=== PATIENT | male | born 1955 | race Caucasian/White ===

== ENCOUNTER 2017-10-29 23:07 | Inpatient (IN) ==
[2017-10-30] MEDS ORDERED: methylPREDNISolone SOD SUC 125 MG/2 ML VIAL IV STA (00:06)
[2017-10-30] MEDS ORDERED: ALBUTEROL/IPRATROPIUM 3 ML NEB RESP TX STA (00:06)
[2017-10-30 00:16] LABS: Immature Granulocytes Absolute 0.03 #; Mean Corpuscular Hemoglobin 30 PG (27-34); Red Cell Distribution Width 14.5 % (9.3-17.3)
[2017-10-30] MEDS ORDERED: methylPREDNISolone SOD SUC 125 MG/2 ML VIAL ONE (00:29)
[2017-10-30 00:32] LABS: Alanine Aminotransferase 21 U/L (16-61); Albumin 3.1 G/DL (3.4-5.0); Alkaline Phosphatase 96 U/L (45-117); Aspartate Amino Transferase 24 U/L (0-37); Bilirubin,Total < 0.39 MG/DL (0.2-1.0); Blood Urea Nitrogen 14 MG/DL (7-18); Calcium 8.5 MG/DL (8.5-10.1); Glucose 158 MG/DL (74-106); Potassium 3.8 MMOL/L (3.5-5.1); Sodium 136 MMOL/L (136-145); Total Protein 6.9 G/DL (6.4-8.3); Troponin I Only 0.042 NG/ML (0.00-0.045)
[2017-10-30 00:32] LABS: Basophils % 0.4 % (0.0-0.8); Eosinophils # 0.1 10*3/uL (0.0-0.87); Eosinophils % 1.4 % (0.00-10.9); Hematocrit 41.2 VOL% (42.0-52.0); Hemoglobin 13.6 GM/DL (14.0-18.0); Immature Granulocytes % 0.4 %; Lymphocytes # 1.2 10*3/uL (1.4-4.0); Mean Corpuscular Volume 89.4 FL (87-102); Mean Platelet Volume 11.1 FL (9.6-12.0); Monocytes # 0.6 10*3/uL (0.11-0.8); Monocytes % 8.1 % (1.7-12.7); Neutrophils # 5.3 10*3/uL (1.4-7.4); Neutrophils % 73.7 % (38.7-73.9); Platelet Count 148 T/CUMM (130-400); Red Blood Count 4.61 MC/CUMM (3.8-5.5); White Blood Count 7.2 T/CUMM (4-12)
[2017-10-30 00:40] LABS: PT Patient Result 10.3 SECS; Partial Thromboplastin Time 29.4 SECS (0-40)
[2017-10-30] MEDS ORDERED: FUROSEMIDE 40 MG/4 ML VIAL IV ONE (02:30)
[2017-10-30] MEDS ORDERED: FUROSEMIDE 20 MG/2 ML VIAL ONE (02:36)
[2017-10-30] MEDS ORDERED: FUROSEMIDE 40 MG/4 ML VIAL ONE (02:36)
[2017-10-30] MEDS ORDERED: traZODone 50 MG TABLET PO PRN (04:12)
[2017-10-30] MEDS ORDERED: NICOTINE 21 MG/24 HR PATCH TRANSDERM PRN (04:12)
[2017-10-30] MEDS ORDERED: MORPHINE 2 MG/1 ML SYRINGE IV PRN (04:12)
[2017-10-30] MEDS ORDERED: ACETAMINOPHEN 325 MG TABLET PO PRN (04:12)
[2017-10-30] MEDS ORDERED: ONDANSETRON 4 MG/2 ML VIAL IV PRN (04:12)
[2017-10-30] MEDS: LEVOFLOXACIN INJ 750 MG in PREMIX 1 EACH IV SCH (05:04)
[2017-10-30] MEDS: ALBUTEROL/IPRATROPIUM 3 ML NEB RESP TX SCH ×4 (05:29→19:42)
[2017-10-30] MEDS: LEVOTHYROXINE 25 MCG TABLET PO SCH (06:19)
[2017-10-30] MEDS: PANTOPRAZOLE 40 MG TABLET PO SCH (08:24)
[2017-10-30] MEDS: FUROSEMIDE 40 MG/4 ML VIAL IV SCH ×2 (08:24→15:05)
[2017-10-30] MEDS: ASPIRIN 325 MG TABLET PO SCH (08:24)
[2017-10-30] MEDS: LISINOPRIL 20 MG TABLET PO SCH (08:24)
[2017-10-30] MEDS: ENOXAPARIN 40 MG/0.4 ML SYRINGE SUBCUT SCH (08:35)
[2017-10-30] MEDS: CARVEDILOL 6.25 MG TABLET PO SCH ×2 (08:35→21:52)
[2017-10-30] MEDS: DOCUSATE SODIUM 100 MG CAPSULE PO SCH ×2 (08:35→21:53)
[2017-10-30] MEDS ORDERED: ALBUTEROL 2.5 MG/3 ML NEB RESP TX PRN (13:46)
[2017-10-30] MEDS ORDERED: NITROGLYCERIN SL 0.4 MG TABLET SL PRN (13:47)
[2017-10-30] MEDS: OSELTAMIVIR 75 MG CAPSULE PO SCH (15:05)
[2017-10-30] MEDS: methylPREDNISolone SOD SUC 40 MG/1 ML VIAL IV SCH (15:05)
[2017-10-30] MEDS: SPIRONOLACTONE 25 MG TABLET PO SCH (21:52)
[2017-10-30] MEDS: ATORVASTATIN 40 MG TABLET PO SCH (21:52)
[2017-10-31] MEDS: ALBUTEROL/IPRATROPIUM 3 ML NEB RESP TX SCH ×4 (01:20→19:21)
[2017-10-31 04:41] LABS: Basophils % 0.2 % (0.0-0.8); Hematocrit 45.6 VOL% (42.0-52.0); Hemoglobin 14.7 GM/DL (14.0-18.0); Immature Granulocytes % 0.8 %; Immature Granulocytes Absolute 0.08 #; Lymphocytes # 1.4 10*3/uL (1.4-4.0); Lymphocytes % 13.6 % (21.2-54.2); Mean Corpuscular HGB Conc 32.2 GM/DL (32-36); Mean Corpuscular Hemoglobin 29 PG (27-34); Mean Corpuscular Volume 89.8 FL (87-102); Mean Platelet Volume 11.8 FL (9.6-12.0); Monocytes # 0.9 10*3/uL (0.11-0.8); Monocytes % 9.3 % (1.7-12.7); Neutrophils # 7.6 10*3/uL (1.4-7.4); Neutrophils % 76.1 % (38.7-73.9); Platelet Count 188 T/CUMM (130-400); Red Blood Count 5.08 MC/CUMM (3.8-5.5); Red Cell Distribution Width 14.3 % (9.3-17.3)
[2017-10-31 05:31] LABS: Calcium 8.5 MG/DL (8.5-10.1); Magnesium 2.3 MG/DL (1.8-2.4); Osmolality,Calculated 287.4 MOS/KG (273-304)
[2017-10-31 05:40] LABS: Risk Ratio 3.9; Thyroid Stimulating Hormone 0.646 uIU/ml (0.358-3.74); VLDL CHOLESTEROL 37.8 MG/DL
[2017-10-31] MEDS: methylPREDNISolone SOD SUC 40 MG/1 ML VIAL IV SCH ×2 (06:19→21:40)
[2017-10-31] MEDS: LEVOTHYROXINE 25 MCG TABLET PO SCH (06:19)
[2017-10-31 06:26] LABS: Hypochromasia 1+; Lymphocytes 9 % (20-55); Platelet Estimate Adequate; Segmented Neutrophils 81 % (50-85); Total Cells Counted 100
[2017-10-31] MEDS: FUROSEMIDE 40 MG/4 ML VIAL IV SCH ×2 (08:35→15:03)
[2017-10-31] MEDS: ENOXAPARIN 40 MG/0.4 ML SYRINGE SUBCUT SCH (08:36)
[2017-10-31] MEDS: OSELTAMIVIR 75 MG CAPSULE PO SCH ×2 (08:36→21:41)
[2017-10-31] MEDS: LEVOFLOXACIN INJ 750 MG in PREMIX 1 EACH IV SCH (08:36)
[2017-10-31] MEDS: ASPIRIN 325 MG TABLET PO SCH (08:36)
[2017-10-31] MEDS: SPIRONOLACTONE 25 MG TABLET PO SCH ×2 (08:37→21:41)
[2017-10-31] MEDS: PANTOPRAZOLE 40 MG TABLET PO SCH (08:37)
[2017-10-31] MEDS: LISINOPRIL 20 MG TABLET PO SCH (08:37)
[2017-10-31] MEDS: DOCUSATE SODIUM 100 MG CAPSULE PO SCH ×2 (08:37→21:41)
[2017-10-31] MEDS: CARVEDILOL 6.25 MG TABLET PO SCH ×2 (08:37→21:41)
[2017-10-31] MEDS: tiZANidine 4 MG TABLET PO SCH (08:37)
[2017-10-31] MEDS: ATORVASTATIN 40 MG TABLET PO SCH (21:41)
[2017-11-01] MEDS: ALBUTEROL/IPRATROPIUM 3 ML NEB RESP TX SCH ×4 (01:45→19:29)
[2017-11-01 04:46] LABS: Basophils % 0.1 % (0.0-0.8); Hemoglobin 13.9 GM/DL (14.0-18.0); Immature Granulocytes % 0.8 %; Immature Granulocytes Absolute 0.07 #; Lymphocytes # 1.6 10*3/uL (1.4-4.0); Lymphocytes % 18.1 % (21.2-54.2); Mean Corpuscular HGB Conc 32.3 GM/DL (32-36); Mean Corpuscular Hemoglobin 29 PG (27-34); Mean Corpuscular Volume 90.1 FL (87-102); Mean Platelet Volume 12.1 FL (9.6-12.0); Monocytes # 0.5 10*3/uL (0.11-0.8); Neutrophils # 6.8 10*3/uL (1.4-7.4); Platelet Count 201 T/CUMM (130-400); Red Blood Count 4.77 MC/CUMM (3.8-5.5); Red Cell Distribution Width 14.3 % (9.3-17.3)
[2017-11-01 05:46] LABS: Calcium 8.5 MG/DL (8.5-10.1); Osmolality,Calculated 287.5 MOS/KG (273-304); Potassium 4.1 MMOL/L (3.5-5.1)
[2017-11-01] MEDS: LEVOTHYROXINE 25 MCG TABLET PO SCH (06:28)
[2017-11-01] MEDS: PANTOPRAZOLE 40 MG TABLET PO SCH (10:04)
[2017-11-01] MEDS: DOCUSATE SODIUM 100 MG CAPSULE PO SCH ×2 (10:04→20:55)
[2017-11-01] MEDS: ASPIRIN 325 MG TABLET PO SCH (10:04)
[2017-11-01] MEDS: CARVEDILOL 6.25 MG TABLET PO SCH ×2 (10:04→20:55)
[2017-11-01] MEDS: LISINOPRIL 20 MG TABLET PO SCH (10:05)
[2017-11-01] MEDS: OSELTAMIVIR 75 MG CAPSULE PO SCH ×2 (10:05→20:55)
[2017-11-01] MEDS: SPIRONOLACTONE 25 MG TABLET PO SCH ×2 (10:06→20:55)
[2017-11-01] MEDS: tiZANidine 4 MG TABLET PO SCH (10:06)
[2017-11-01] MEDS: FUROSEMIDE 40 MG/4 ML VIAL IV SCH (10:09)
[2017-11-01] MEDS: methylPREDNISolone SOD SUC 40 MG/1 ML VIAL IV SCH ×2 (10:16→21:25)
[2017-11-01] MEDS: ENOXAPARIN 40 MG/0.4 ML SYRINGE SUBCUT SCH (10:19)
[2017-11-01] MEDS: LEVOFLOXACIN INJ 750 MG in PREMIX 1 EACH IV SCH (10:20)
[2017-11-01] MEDS: ATORVASTATIN 40 MG TABLET PO SCH (20:54)
[2017-11-02] MEDS: ALBUTEROL/IPRATROPIUM 3 ML NEB RESP TX SCH ×2 (00:30→08:28)
[2017-11-02] MEDS: LEVOTHYROXINE 25 MCG TABLET PO SCH (07:15)
[2017-11-02 08:09] VITALS: BP 160/76
[2017-11-02] MEDS ORDERED: FUROSEMIDE 40 MG TABLET PO SCH (09:00)
[2017-11-02] MEDS: tiZANidine 4 MG TABLET PO SCH (09:08)
[2017-11-02] MEDS: DOCUSATE SODIUM 100 MG CAPSULE PO SCH (09:08)
[2017-11-02] MEDS: LISINOPRIL 20 MG TABLET PO SCH (09:08)
[2017-11-02] MEDS: OSELTAMIVIR 75 MG CAPSULE PO SCH (09:08)
[2017-11-02] MEDS: ASPIRIN 325 MG TABLET PO SCH (09:08)
[2017-11-02] MEDS: PANTOPRAZOLE 40 MG TABLET PO SCH (09:08)
[2017-11-02] MEDS: SPIRONOLACTONE 25 MG TABLET PO SCH (09:09)
[2017-11-02] MEDS: CARVEDILOL 6.25 MG TABLET PO SCH (09:09)
[2017-11-02] MEDS: ENOXAPARIN 40 MG/0.4 ML SYRINGE SUBCUT SCH (09:09)
[2017-11-02] MEDS: methylPREDNISolone SOD SUC 40 MG/1 ML VIAL IV SCH (09:09)
[2017-11-02] MEDS: LEVOFLOXACIN INJ 750 MG in PREMIX 1 EACH IV SCH (09:18)
== END 2017-11-02 11:00 | disposition home health service (06) | DRG 193 ==
LOC: N.ED 23:07 → SUATTDRO 10-30 02:21 → N.EDINP 10-30 02:21 → N.2E 10-30 03:41
PROVIDERS: ADMIT Internal Medicine; ATTEND Internal Medicine

== ENCOUNTER 2018-01-16 06:36 | Inpatient (IN) ==
[2018-01-16] MEDS ORDERED: FAMOTIDINE 20 MG/2 ML VIAL IV STA (06:41)
[2018-01-16] MEDS ORDERED: methylPREDNISolone SOD SUC 125 MG/2 ML VIAL IV STA ×2 (06:41→06:55)
[2018-01-16] MEDS ORDERED: methylPREDNISolone SOD SUC 125 MG/2 ML VIAL ONE (06:42)
[2018-01-16] MEDS ORDERED: FAMOTIDINE 20 MG/2 ML VIAL IV ONE (06:42)
[2018-01-16] MEDS ORDERED: diphenhydrAMINE 50 MG/1 ML VIAL ONE (06:42)
[2018-01-16] MEDS ORDERED: diphenhydrAMINE 50 MG/1 ML VIAL IV STA (06:43)
[2018-01-16] MEDS ORDERED: PROPOFOL 0 MG/0 ML BOTTLE IV ONE (06:48)
[2018-01-16] MEDS ORDERED: PROPOFOL 1,000 MG/100 ML BOTTLE IV ONE (06:56)
[2018-01-16] MEDS ORDERED: PROPOFOL 200 MG/20 ML VIAL IV STA (06:57)
[2018-01-16] MEDS ORDERED: ROCURONIUM 100 MG/10 ML VIAL IV ONE ×2 (06:57→06:58)
[2018-01-16 07:01] LABS: Basophils % 0.3 % (0.0-0.8); Eosinophils # 0.2 10*3/uL (0.0-0.87); Eosinophils % 1.9 % (0.00-10.9); Hemoglobin 14.3 GM/DL (14.0-18.0); Immature Granulocytes % 0.4 %; Immature Granulocytes Absolute 0.05 #; Lymphocytes # 1.8 10*3/uL (1.4-4.0); Lymphocytes % 14.8 % (21.2-54.2); Mean Corpuscular HGB Conc 31.8 GM/DL (32-36); Mean Corpuscular Hemoglobin 29 PG (27-34); Mean Corpuscular Volume 90.7 FL (87-102); Mean Platelet Volume 11.3 FL (9.6-12.0); Monocytes # 1.1 10*3/uL (0.11-0.8); Monocytes % 8.9 % (1.7-12.7); Neutrophils # 8.8 10*3/uL (1.4-7.4); Neutrophils % 73.7 % (38.7-73.9); Platelet Count 222 T/CUMM (130-400); Red Blood Count 4.96 MC/CUMM (3.8-5.5); Red Cell Distribution Width 15.1 % (9.3-17.3); White Blood Count 11.9 T/CUMM (4-12)
[2018-01-16] MEDS: PROPOFOL 1,000 MG/100 ML BOTTLE IV SCH ×5 (07:13→23:52)
[2018-01-16 07:22] LABS: Alanine Aminotransferase 22 U/L (16-61); Albumin 3.3 G/DL (3.4-5.0); Alkaline Phosphatase 87 U/L (45-117); Aspartate Amino Transferase 25 U/L (0-37); Bilirubin,Total < 0.39 MG/DL (0.2-1.0); Blood Urea Nitrogen 18 MG/DL (7-18); Calcium 9.1 MG/DL (8.5-10.1); Glucose 95 MG/DL (74-106); Osmolality,Calculated 284.1 MOS/KG (273-304); Potassium 4.4 MMOL/L (3.5-5.1); Sodium 142 MMOL/L (136-145); Total Protein 6.9 G/DL (6.4-8.3)
[2018-01-16 07:25] LABS: Apearance,Urine CLEAR (Clear); Bacteria,Urine Occasional /HPF (Few); Bilirubin,Urine Negative (Negative); Blood, Urine Negative (Negative); Glucose,Urine (UA) Negative (Negative); Hyaline Casts,Urine 1 /LPF (0-3); Ketones,Urine Negative (Negative); Mucus,Urine Few /LPF (Occasional); Nitrite,Urine Negative (Negative); Protein,Urine Negative; RBC,Urine 2 /HPF (0-4); Squamous Epithelial Cell,Urine Occasional /HPF (0-10); Urine Color Yellow (Yellow); Urine Specific Gravity 1.027 (1.001-1.035); Urine Urobilinogen < 2.0 EU/DL (0.2-1.0); WBC,Urine 1 /HPF (0-6)
[2018-01-16 07:47] LABS: ABG Base Excess 0.5 MMOL/L (-2.5-2.5); ABG HCO3 24.9 MMOL/L (20-26); ABG PCO2 51.4 MM HG (35-48); ABG PH 7.334 (7.35-7.45)
[2018-01-16 07:48] LABS: Allen Test Positive; Pt O2 Delivery Device Ventilator
[2018-01-16 07:49] LABS: ABG Oxygen Saturation 99.5 % (95-100)
[2018-01-16] MEDS ORDERED: ONDANSETRON 4 MG/2 ML VIAL IV PRN (07:51)
[2018-01-16] MEDS ORDERED: ALBUTEROL 2.5 MG/3 ML NEB RESP TX PRN (07:51)
[2018-01-16] MEDS ORDERED: ACETAMINOPHEN 325 MG TABLET PO PRN (07:51)
[2018-01-16] MEDS ORDERED: PANTOPRAZOLE 40 MG VIAL IV SCH (08:00)
[2018-01-16] MEDS ORDERED: SODIUM CHLORIDE 0.9% 1,000 ML IV PRN (08:35)
[2018-01-16 09:22] LABS: Troponin I Only 0.015 NG/ML (0.00-0.045)
[2018-01-16] MEDS: LEVOFLOXACIN INJ 750 MG in PREMIX 1 EACH IV SCH (09:28)
[2018-01-16] MEDS: fentaNYL INJ 1,250 MCG in SODIUM CHLORIDE 0.9% 225 ML IV SCH ×2 (09:29→18:47)
[2018-01-16] MEDS: SODIUM CHLORIDE 0.9% 1,000 ML IV SCH ×2 (09:29→18:46)
[2018-01-16] MEDS ORDERED: methylPREDNISolone SOD SUC 125 MG/2 ML VIAL IV SCH ×2 (09:30→14:00)
[2018-01-16] MEDS: amLODIPine 2.5 MG TABLET PO SCH (09:46)
[2018-01-16] MEDS ORDERED: FAMOTIDINE INJ 40 MG in SODIUM CHLORIDE 0.9% 100 ML IV SCH (10:00)
[2018-01-16] MEDS ORDERED: diphenhydrAMINE 50 MG/1 ML VIAL IV SCH (12:00)
[2018-01-16 15:52] LABS: Troponin I Only < 0.015 NG/ML (0.00-0.045)
[2018-01-16 21:23] LABS: Troponin I Only < 0.015 NG/ML (0.00-0.045)
[2018-01-17] MEDS: SODIUM CHLORIDE 0.9% 1,000 ML IV SCH ×2 (02:30→10:24)
[2018-01-17] MEDS: fentaNYL INJ 1,250 MCG in SODIUM CHLORIDE 0.9% 225 ML IV SCH ×4 (02:30→22:37)
[2018-01-17 05:16] LABS: ABG Base Excess 1.7 MMOL/L (-2.5-2.5); ABG HCO3 25.9 MMOL/L (20-26); ABG PCO2 48.5 MM HG (35-48); ABG PH 7.365 (7.35-7.45); ABG TCO2 24.7 MMOL/L (23-27); Allen Test Positive; Pt O2 Delivery Device Ventilator
[2018-01-17 05:17] LABS: ABG Oxygen Saturation 99.4 % (95-100)
[2018-01-17 06:02] LABS: Basophils % 0.1 % (0.0-0.8); Hematocrit 36.6 VOL% (42.0-52.0); Hemoglobin 11.9 GM/DL (14.0-18.0); Immature Granulocytes % 0.5 %; Immature Granulocytes Absolute 0.05 #; Lymphocytes # 1.3 10*3/uL (1.4-4.0); Lymphocytes % 13.4 % (21.2-54.2); Mean Corpuscular HGB Conc 32.5 GM/DL (32-36); Mean Corpuscular Hemoglobin 29 PG (27-34); Mean Corpuscular Volume 90.4 FL (87-102); Monocytes # 0.7 10*3/uL (0.11-0.8); Monocytes % 7.3 % (1.7-12.7); Neutrophils # 7.7 10*3/uL (1.4-7.4); Neutrophils % 78.7 % (38.7-73.9); Platelet Count 183 T/CUMM (130-400); Red Blood Count 4.05 MC/CUMM (3.8-5.5); White Blood Count 9.8 T/CUMM (4-12)
[2018-01-17 06:25] LABS: Calcium 8.3 MG/DL (8.5-10.1); Osmolality,Calculated 282.3 MOS/KG (273-304); Potassium 4.2 MMOL/L (3.5-5.1)
[2018-01-17] MEDS: PROPOFOL 1,000 MG/100 ML BOTTLE IV SCH ×4 (08:24→21:12)
[2018-01-17] MEDS: LEVOFLOXACIN INJ 750 MG in PREMIX 1 EACH IV SCH (08:26)
[2018-01-17 09:27] LABS: ABG Base Excess 1.3 MMOL/L (-2.5-2.5); ABG HCO3 25.6 MMOL/L (20-26); ABG Oxygen Saturation 98.7 % (95-100); ABG PH 7.363 (7.35-7.45); ABG TCO2 24.3 MMOL/L (23-27); Allen Test Positive; Pt O2 Delivery Device Ventilator
[2018-01-17] MEDS: amLODIPine 2.5 MG TABLET PO SCH (09:35)
[2018-01-17] MEDS: DEXTROSE 5% NACL 0.9% 1,000 ML IV SCH ×2 (10:00→18:10)
[2018-01-17] MEDS ORDERED: GLUCAGON 1 MG VIAL IM PRN (12:24)
[2018-01-17] MEDS ORDERED: DEXTROSE 50% 25 GM/50 ML VIAL IV PRN (12:24)
[2018-01-17] MEDS: PANTOPRAZOLE 40 MG VIAL IV SCH (13:26)
[2018-01-17] MEDS: INSULIN REGULAR 100 UNIT/ML SUBCUT SCH (18:10)
[2018-01-17] MEDS: ENOXAPARIN 40 MG/0.4 ML SYRINGE SUBCUT SCH (21:12)
[2018-01-18] MEDS: DEXTROSE 5% NACL 0.9% 1,000 ML IV SCH (01:50)
[2018-01-18] MEDS: PROPOFOL 1,000 MG/100 ML BOTTLE IV SCH ×5 (03:00→19:00)
[2018-01-18 03:46] LABS: ABG Base Excess 2.1 MMOL/L (-2.5-2.5); ABG HCO3 26.3 MMOL/L (20-26); ABG Oxygen Saturation 97.7 % (95-100); ABG PCO2 50.1 MM HG (35-48); ABG PH 7.361 (7.35-7.45); ABG TCO2 25.5 MMOL/L (23-27); Allen Test Positive; Pt O2 Delivery Device Ventilator
[2018-01-18] MEDS: fentaNYL INJ 1,250 MCG in SODIUM CHLORIDE 0.9% 225 ML IV SCH ×2 (05:04→16:00)
[2018-01-18 05:38] LABS: Basophils % 0.3 % (0.0-0.8); Eosinophils # 0.1 10*3/uL (0.0-0.87); Eosinophils % 0.7 % (0.00-10.9); Hematocrit 36.7 VOL% (42.0-52.0); Hemoglobin 11.8 GM/DL (14.0-18.0); Immature Granulocytes % 0.4 %; Immature Granulocytes Absolute 0.04 #; Lymphocytes # 2.9 10*3/uL (1.4-4.0); Lymphocytes % 30.9 % (21.2-54.2); Mean Corpuscular HGB Conc 32.2 GM/DL (32-36); Mean Corpuscular Hemoglobin 30 PG (27-34); Mean Platelet Volume 11.8 FL (9.6-12.0); Monocytes # 0.9 10*3/uL (0.11-0.8); Monocytes % 9.7 % (1.7-12.7); Neutrophils # 5.4 10*3/uL (1.4-7.4); Platelet Count 179 T/CUMM (130-400); Red Blood Count 3.99 MC/CUMM (3.8-5.5); Red Cell Distribution Width 15.4 % (9.3-17.3); White Blood Count 9.4 T/CUMM (4-12)
[2018-01-18 06:10] LABS: Osmolality,Calculated 283.1 MOS/KG (273-304); Potassium 3.7 MMOL/L (3.5-5.1)
[2018-01-18] MEDS: INSULIN REGULAR 100 UNIT/ML SUBCUT SCH ×4 (06:14→17:53)
[2018-01-18] MEDS ORDERED: POTASSIUM CHLORIDE RIDER 10 MEQ in PREMIX 1 EACH IV PRN (07:38)
[2018-01-18] MEDS: LEVOFLOXACIN INJ 750 MG in PREMIX 1 EACH IV SCH (08:55)
[2018-01-18] MEDS: methylPREDNISolone SOD SUC 40 MG/1 ML VIAL IV SCH ×2 (08:56→15:31)
[2018-01-18] MEDS: amLODIPine 2.5 MG TABLET PO SCH (08:56)
[2018-01-18] MEDS: FUROSEMIDE 40 MG/4 ML VIAL IV SCH (08:56)
[2018-01-18] MEDS: PANTOPRAZOLE 40 MG VIAL IV SCH (08:57)
[2018-01-18] MEDS: POTASSIUM CHLORIDE INJ 20 MEQ in SODIUM CHLORIDE 0.9% 250 ML IV SCH ×2 (09:48→13:36)
[2018-01-18] MEDS: LABETALOL 20 MG/4 ML SYRINGE IV PRN (10:06)
[2018-01-18] MEDS ORDERED: SODIUM CHLORIDE 0.9% 1,000 ML IV PRN (12:06)
[2018-01-18] MEDS: AMINO ACIDS/DEXT/LYTES 5-15% 2,000 ML IV SCH (17:28)
[2018-01-18] MEDS: ENOXAPARIN 40 MG/0.4 ML SYRINGE SUBCUT SCH (21:17)
[2018-01-19] MEDS: methylPREDNISolone SOD SUC 40 MG/1 ML VIAL IV SCH ×4 (00:20→23:18)
[2018-01-19] MEDS: INSULIN REGULAR 100 UNIT/ML SUBCUT SCH ×4 (01:35→18:10)
[2018-01-19 03:55] LABS: ABG Base Excess 4.8 MMOL/L (-2.5-2.5); ABG HCO3 28.7 MMOL/L (20-26); ABG Oxygen Saturation 96.9 % (95-100); ABG PCO2 47.8 MM HG (35-48); ABG PH 7.412 (7.35-7.45); ABG PO2 89.5 MM HG (80-95); ABG TCO2 26.5 MMOL/L (23-27); Pt O2 Delivery Device Ventilator
[2018-01-19 05:54] LABS: Calcium 8.7 MG/DL (8.5-10.1); Potassium 3.9 MMOL/L (3.5-5.1); Prealbumin 30.6 MG/DL (20-40)
[2018-01-19] MEDS ORDERED: MIDAZOLAM 2 MG/2 ML VIAL IV ONE (07:25)
[2018-01-19] MEDS ORDERED: LIDOCAINE 1% 20 ML VIAL MISC INJ ONE (07:25)
[2018-01-19] MEDS ORDERED: LIDOCAINE 2% 20 ML VIAL RESP TX ONE (07:25)
[2018-01-19] MEDS: PROPOFOL 1,000 MG/100 ML BOTTLE IV SCH ×4 (07:40→22:25)
[2018-01-19] MEDS: LEVOFLOXACIN INJ 750 MG in PREMIX 1 EACH IV SCH (09:30)
[2018-01-19] MEDS: FUROSEMIDE 40 MG/4 ML VIAL IV SCH (09:30)
[2018-01-19] MEDS: amLODIPine 2.5 MG TABLET PO SCH (09:30)
[2018-01-19] MEDS: PANTOPRAZOLE 40 MG VIAL IV SCH (09:32)
[2018-01-19] MEDS: fentaNYL INJ 1,250 MCG in SODIUM CHLORIDE 0.9% 225 ML IV SCH ×2 (13:10→22:50)
[2018-01-19] MEDS: LABETALOL 20 MG/4 ML SYRINGE IV PRN (14:10)
[2018-01-19] MEDS: AMINO ACIDS/DEXT/LYTES 5-15% 2,000 ML IV SCH (18:00)
[2018-01-19] MEDS: ENOXAPARIN 40 MG/0.4 ML SYRINGE SUBCUT SCH (21:29)
[2018-01-20] MEDS: PROPOFOL 1,000 MG/100 ML BOTTLE IV SCH ×3 (01:18→08:15)
[2018-01-20 05:36] LABS: ABG Base Excess 6.4 MMOL/L (-2.5-2.5); ABG HCO3 30.2 MMOL/L (20-26); ABG Oxygen Saturation 99.2 % (95-100); ABG PCO2 52.4 MM HG (35-48); ABG PH 7.404 (7.35-7.45); ABG TCO2 28.4 MMOL/L (23-27)
[2018-01-20] MEDS: INSULIN REGULAR 100 UNIT/ML SUBCUT SCH ×3 (06:13→17:43)
[2018-01-20 07:49] LABS: ABG Base Excess 7.3 MMOL/L (-2.5-2.5); ABG HCO3 31.2 MMOL/L (20-26); ABG Oxygen Saturation 99.4 % (95-100); ABG PCO2 46.1 MM HG (35-48); ABG PH 7.455 (7.35-7.45); ABG TCO2 27.9 MMOL/L (23-27)
[2018-01-20 08:14] LABS: Risk Ratio 3.81; VLDL CHOLESTEROL 46.6 MG/DL
[2018-01-20] MEDS: methylPREDNISolone SOD SUC 40 MG/1 ML VIAL IV SCH ×2 (08:50→16:35)
[2018-01-20] MEDS: amLODIPine 2.5 MG TABLET PO SCH (08:51)
[2018-01-20] MEDS: FUROSEMIDE 40 MG/4 ML VIAL IV SCH (08:51)
[2018-01-20 08:52] LABS: ABG Base Excess 7.9 MMOL/L (-2.5-2.5); ABG HCO3 31.7 MMOL/L (20-26); ABG Oxygen Saturation 96.5 % (95-100); ABG PCO2 50.4 MM HG (35-48); ABG PH 7.435 (7.35-7.45); ABG PO2 85.6 MM HG (80-95); ABG TCO2 29.1 MMOL/L (23-27)
[2018-01-20] MEDS: PANTOPRAZOLE 40 MG VIAL IV SCH (08:52)
[2018-01-20] MEDS: LEVOFLOXACIN INJ 750 MG in PREMIX 1 EACH IV SCH (08:54)
[2018-01-20 08:57] LABS: Albumin 3.1 G/DL (3.4-5.0); Bilirubin,Total 0.4 MG/DL (0.2-1.0); Osmolality,Calculated 284.3 MOS/KG (273-304); Potassium 4.2 MMOL/L (3.5-5.1); Total Protein 6.9 G/DL (6.4-8.3)
[2018-01-20] MEDS: fentaNYL INJ 1,250 MCG in SODIUM CHLORIDE 0.9% 225 ML IV SCH (10:42)
[2018-01-20] MEDS ORDERED: NEBIVOLOL 5 MG TABLET PO SCH (13:30)
[2018-01-20] MEDS: ASPIRIN EC 325 MG TABLET PO SCH (14:09)
[2018-01-20] MEDS: amLODIPine 10 MG TABLET PO SCH (14:10)
[2018-01-20] MEDS ORDERED: BISACODYL 10 MG SUPP RECTAL PRN (21:15)
[2018-01-20] MEDS ORDERED: LORazepam 2 MG/1 ML VIAL IV PRN (21:15)
[2018-01-20] MEDS: LUBIPROSTONE 24 MCG CAPSULE PO SCH (21:52)
[2018-01-20] MEDS: ENOXAPARIN 40 MG/0.4 ML SYRINGE SUBCUT SCH (21:53)
[2018-01-20] MEDS: AMINO ACIDS/DEXT/LYTES 5-15% 2,000 ML IV SCH (23:59)
[2018-01-21] MEDS: INSULIN REGULAR 100 UNIT/ML SUBCUT SCH ×4 (00:01→18:03)
[2018-01-21] MEDS: methylPREDNISolone SOD SUC 40 MG/1 ML VIAL IV SCH (00:02)
[2018-01-21 05:56] LABS: Albumin 3.1 G/DL (3.4-5.0); Bilirubin,Total 0.7 MG/DL (0.2-1.0); Calcium 8.9 MG/DL (8.5-10.1); Osmolality,Calculated 280.8 MOS/KG (273-304); Potassium 4.4 MMOL/L (3.5-5.1); Total Protein 6.4 G/DL (6.4-8.3)
[2018-01-21 06:39] LABS: Basophils % 0.2 % (0.0-0.8); Hematocrit 42.5 VOL% (42.0-52.0); Immature Granulocytes % 1.8 %; Immature Granulocytes Absolute 0.23 #; Lymphocytes # 1.1 10*3/uL (1.4-4.0); Mean Corpuscular HGB Conc 32.9 GM/DL (32-36); Mean Corpuscular Hemoglobin 29 PG (27-34); Mean Corpuscular Volume 87.8 FL (87-102); Mean Platelet Volume 12.1 FL (9.6-12.0); Monocytes # 0.8 10*3/uL (0.11-0.8); Monocytes % 6.4 % (1.7-12.7); NRBC # 0.02 10*3/uL; Neutrophils # 10.5 10*3/uL (1.4-7.4); Neutrophils % 82.6 % (38.7-73.9); Platelet Count 226 T/CUMM (130-400); Red Blood Count 4.84 MC/CUMM (3.8-5.5); Red Cell Distribution Width 14.6 % (9.3-17.3); White Blood Count 12.7 T/CUMM (4-12)
[2018-01-21] MEDS: hydrALAZINE 25 MG TABLET PO SCH ×2 (09:00→20:37)
[2018-01-21] MEDS: NEBIVOLOL 5 MG TABLET PO SCH ×2 (09:00→20:38)
[2018-01-21] MEDS: predniSONE 20 MG TABLET PO SCH (09:00)
[2018-01-21] MEDS: ASPIRIN EC 325 MG TABLET PO SCH (09:01)
[2018-01-21] MEDS: LUBIPROSTONE 24 MCG CAPSULE PO SCH ×2 (09:01→20:38)
[2018-01-21] MEDS: amLODIPine 10 MG TABLET PO SCH (09:01)
[2018-01-21] MEDS: POLYETHYLENE GLYCOL POWDER 17 GM PACK PO SCH ×2 (09:14→20:39)
[2018-01-21] MEDS: DOCUSATE SODIUM 100 MG CAPSULE PO SCH ×2 (09:15→20:38)
[2018-01-21] MEDS: FUROSEMIDE 40 MG/4 ML VIAL IV SCH (09:16)
[2018-01-21] MEDS: LEVOFLOXACIN INJ 750 MG in PREMIX 1 EACH IV SCH (09:16)
[2018-01-21] MEDS: PANTOPRAZOLE 40 MG VIAL IV SCH (09:16)
[2018-01-21] MEDS ORDERED: ALUMINUM/MAGNES/SIMETH MAX STR 30 ML UDCUP PO PRN (11:24)
[2018-01-21] MEDS: NICOTINE 14 MG/24 HR PATCH TRANSDERM SCH (12:45)
[2018-01-21] MEDS: ENOXAPARIN 40 MG/0.4 ML SYRINGE SUBCUT SCH (20:37)
[2018-01-21] MEDS ORDERED: ZALEPLON 5 MG CAPSULE PO PRN (21:24)
[2018-01-22 08:08] VITALS: BP 149/75
[2018-01-22] MEDS ORDERED: LEVOFLOXACIN 750 MG TABLET PO SCH (09:00)
[2018-01-22] MEDS: PANTOPRAZOLE 40 MG VIAL IV SCH (09:36)
[2018-01-22] MEDS: FUROSEMIDE 40 MG/4 ML VIAL IV SCH (09:36)
[2018-01-22] MEDS: NEBIVOLOL 5 MG TABLET PO SCH (09:36)
[2018-01-22] MEDS: LUBIPROSTONE 24 MCG CAPSULE PO SCH (09:36)
[2018-01-22] MEDS: amLODIPine 10 MG TABLET PO SCH (09:36)
[2018-01-22] MEDS: DOCUSATE SODIUM 100 MG CAPSULE PO SCH (09:36)
[2018-01-22] MEDS: POLYETHYLENE GLYCOL POWDER 17 GM PACK PO SCH (09:36)
[2018-01-22] MEDS: hydrALAZINE 25 MG TABLET PO SCH (09:37)
[2018-01-22] MEDS: NICOTINE 14 MG/24 HR PATCH TRANSDERM SCH (09:37)
[2018-01-22] MEDS: predniSONE 20 MG TABLET PO SCH (09:37)
[2018-01-22] MEDS: ASPIRIN EC 325 MG TABLET PO SCH (09:37)
[2018-01-22] MEDS ORDERED: CARVEDILOL 12.5 MG TABLET PO SCH (17:00)
== END 2018-01-22 10:35 | disposition home or self-care (01) | DRG 915 ==
LOC: N.ED 06:36 → N.EDINP 07:12 → N.ICU 07:50 → N.2E 01-20 14:59
PROVIDERS: ADMIT Hospitalist; ATTEND Hospitalist